=== PATIENT | female | born 2000 | race Caucasian/White ===

== ENCOUNTER 2023-08-13 05:15 | Emergency (ER) | payer BC ==
[~2023-08-13] VITALS: Ht 162.6 cm; Wt 63.5 kg
[2023-08-13 05:59] VITALS: BP 144/96; PULSE 121; RESP 18; TEMP 97.1; O2SAT 98
[2023-08-13] MEDS ORDERED: LIDOCAINE 1% 500 MG/ 50 ML VIAL INJ ONE (06:25)
[2023-08-13] MEDS ORDERED: LIDOCAINE MPF 1% 5 ML ONE ×2 (06:42→06:47)
[2023-08-13 06:53] VITALS: BP 123/88; PULSE 107; RESP 12; TEMP 97.8; O2SAT 97
== END 2023-08-13 07:22 | disposition home or self-care (01) ==
LOC: MED 05:15
DX: S71.112A Laceration without foreign body, left thigh, initial encounter (principal); W26.8XXA Contact with other sharp object(s), not elsewhere classified, initial encounter; Y93.89 Activity, other specified; Y92.89 Other specified places as the place of occurrence of the external cause; Y99.8 Other external cause status
CPT/HCPCS: 13121; 13122; 99284; J2001

== ENCOUNTER 2023-08-27 15:12 | Emergency (ER) | payer BC ==
[~2023-08-27] VITALS: Ht 162.6 cm; Wt 63.5 kg
[2023-08-27 15:47] VITALS: BP 123/85; PULSE 86; RESP 20; TEMP 98.3; O2SAT 99
[2023-08-27] MEDS ORDERED: BACITRACIN OINT 500 UNITS/GM PKT TP ONE (17:25)
== END 2023-08-27 18:04 | disposition home or self-care (01) ==
LOC: MED 15:12
DX: S71.112D Laceration without foreign body, left thigh, subsequent encounter (principal); Z48.02 Encounter for removal of sutures; X58.XXXD Exposure to other specified factors, subsequent encounter
CPT/HCPCS: 99282